=== PATIENT | female | born 1990 | race African-American/Black ===

== ENCOUNTER 2020-05-26 14:29 | Emergency (ER) | payer OTHER, SELFPAY ==
[2020-05-26 14:55] VITALS: BP 112/80; PULSE 110; RESP 18; TEMP 37.7; O2SAT 97; BMI 36.3
[2020-05-26] MEDS: Lidocaine HCl 1 % MPF 5 ML VIAL SUBCUT (16:03)
--- NOTE | 2020-05-26 16:13 | PC.NURSE ---
JUAN KATHLEEN AT BEDSIDE FOR I&D WITH PCT TRAVIS STOCKTON
--- NOTE | 2020-05-26 16:13 | ED.SKABFB ---
HPI - Skin/Abscess/Foreign Bdy General Chief complaint: Skin/Abscess/Foreign Body Stated complaint: cyst Time Seen by Provider: 05/26/20 15:53 Source: patient Mode of arrival: ambulatory Limitations: no limitations History of Present Illness HPI narrative: States pain/discomfort ongoing for about 4-5 days in the tailbone region, yesterday noted slight discharge from the area that is purulent and foul-smelling. Tetanus up to date: yes Severity scale (1-10): 8 Exacerbating factors: none Context: none Related Data Previous Rx's Medication Instructions Recorded cephalexin [Keflex] 500 mg PO Q8H 10 Days #30 cap 05/26/20 ibuprofen 800 mg PO Q8H PRN #30 tab 05/26/20 sulfamethoxazole-trimethoprim 1 tab PO BID 7 Days #14 tab 05/26/20 [Bactrim DS] Allergies Allergy/AdvReac Type Severity Reaction Status Date / Time No Known Allergies Allergy Verified 05/26/20 14:54 Review of Systems Review of Systems: Constitutional: No Weight loss, No Fever, No Chills, No Night Sweats, No Fatigue, No Malaise ENT/Mouth: No Hearing loss, No Ear Pain, No Nasal Congestion, No Sinus Pain, No Hoarseness, No sore throat, No Rhinorrhea, No Swallowing Difficulty Eyes: No Eye Pain, No Swelling, No Redness, No Foreign Body, No Discharge, No Vision Changes Cardiovascular: No Chest Pain, No SOB, No Dyspnea on Exertion, No Orthopnea, No Edema, No Palpitations Respiratory: No Cough, No Sputum, No Wheezing, No Dyspnea Gastrointestinal: No Nausea, No Vomiting, No Diarrhea, No Constipation, No abdominal Pain, No Hematochezia, No Melena Genitourinary: no irregular bleeding, No Dysuria, No Urinary Frequency, No Hematuria, No Urinary Incontinence, No Urgency, No Flank Pain, No Urinary Flow Changes Musculoskeletal: No joint pain, No Myalgias, No Joint Swelling Skin: As noted in HPI Neuro: No Weakness, No Numbness, No Paresthesias, No Loss of Consciousness, No Dizziness, No Headache Psych: No Social Issues Heme/Lymph: No Bruising, No Bleeding,No Lymphadenopathy Endocrine: No Polyuria, No Polydipsia, No Temperature Intolerance Yes all other systems are reviewed and are negative REPLACED BY [facility] Past Medical History Medical History (Updated 05/26/20 @ 16:15 by Farshad Gallegos NP) Anxiety Hypertension Sickle cell anemia Social History Social History Advance Directives: No Advance Directives Information Provided: No Physical Exam Vital Signs: Vital Signs: Last Vital Signs Temp 99.9 F 05/26/20 14:55 Pulse 110 H 05/26/20 14:55 Resp 18 05/26/20 14:55 BP 112/80 05/26/20 14:55 Pulse Ox 97 05/26/20 14:55 Body Mass Index 36.3 Reviewed Const: General: cooperative and healthy appearing; No acute distress or intoxicated appearing Nutritional Appearance: average body habitus Orientation/consciousness: patient oriented x3 HENMT: Head: Yes normal to inspection Ears: hearing grossly normal bilaterally Eyes: General: appearance normal, both eyes and all related structures Visual Guerrier: normal visual guerrier by confrontation Neck: Neck: Yes normal visual inspection and No tender Thyroid: Thyroid normal Chest: Chest palpation & inspection: normal inspection of the chest Resp: Effort & Inspection: normal respiratory effort Auscultation: clear to auscultation bilaterally Cardio: Jugular venous distension: no JVD Rhythm: regular rhythm Heart sounds: S1 normal heart sound present and S2 normal heart sound present GI: Inspection: Yes normal to inspection Percussion: Yes normal to percussion Auscultation: normal bowel sounds : General: Yes no CVA tenderness Back/Spine/Pelvis: Back: no CVA tenderness Skin: General skin exam: no rashes or lesions noted Full body images: 1. There is induration at the glue brianne extending slightly superior and inferior to this region as marked with central opening with slight purulent discharge. Tender palpation at the site. No overt erythema though limited by the skin tone. Neuro: General: patient oriented x3 Extrem: General: Yes normal to inspection Procedures Abscess I/D Site: other (Pilonidal cyst at the gluteal cleft region) Local Anesthetic: lidocaine 1% (10 mL) Amount of anesthesia used (mL): 10 Technique: incised with blade Amount of fluid expressed (mL): 20 Irrigation: Yes Packing used?: plain Complications: other (Tolerated procedure well with localizedo, in size, drained and packed.) Discharge Plan Discharge Clinical Impression: Cyst, pilonidal, with abscess Patient Disposition: Home, Self-Care Instructions: Pilonidal Cyst (ED), Abscess (ED) Additional Instructions: Keep site clean and dry Leave the Internal packing in place and you can change the top dressing at least twice a day for more frequently if become soiled Starting antibiotic as prescribed today Warm compresses Return in 2 days for packing removal Return sooner if any concerns or worsening symptoms Thank you Prescriptions: New ibuprofen 800 mg tablet 800 mg PO Q8H PRN (Reason: pain) Qty: 30 RF: 0 cephalexin [Keflex] 500 mg capsule 500 mg PO Q8H 10 Days Qty: 30 RF: 0 sulfamethoxazole-trimethoprim [Bactrim DS] 800-160 mg tablet 1 tab PO BID 7 Days Qty: 14 RF: 0 Referrals: Farshad Gallegos ALLERGY AND IMMUNOLOGY CHIEF [Emergency Midlevel Provider] - 2 days (Return on Wednesday evening or Wednesday morning for packing removal) Discharge Date/Time: 05/26/20 16:24
== END 2020-05-26 16:24 | disposition home or self-care (01) ==
PROVIDERS: Emergency Provider Emergency Medicine
DX: L05.01 Pilonidal cyst with abscess (principal); I10 Essential (primary) hypertension
CPT/HCPCS: 10080; 99283; 99284

== ENCOUNTER 2020-05-28 16:21 | Emergency (ER) | payer OTHER, SELFPAY ==
[2020-05-28 16:50] VITALS: BP 121/74; PULSE 89; RESP 16; TEMP 35.9; O2SAT 96; BMI 35.9
== END 2020-05-28 18:35 | disposition left against medical advice (07) ==
PROVIDERS: Emergency Provider Emergency Medicine
DX: M54.5 Low back pain (principal)
CPT/HCPCS: 99281; 99282

== ENCOUNTER 2020-05-30 13:43 | Emergency (ER) | payer OTHER, SELFPAY ==
[2020-05-30 13:53] VITALS: BP 119/68; PULSE 77; RESP 20; TEMP 36.4; O2SAT 98; BMI 35.5
--- NOTE | 2020-05-30 15:31 | ED.GENADULT ---
HPI - General Adult General Chief complaint: General Medical Stated complaint: ?cyst to be drained Time Seen by Provider: 05/30/20 15:31 Source: patient Mode of arrival: ambulatory Limitations: no limitations History of Present Illness HPI narrative: Patient had pilonidal cyst/abscess I&D here on the advised to return to 2 days to fragment removal she came back 2 days ago however the waiting room was busy so she left she comes back today for packing removal she is taking her antibiotic as prescribed she had actually has no complaints of pain discomfort, fever or chills. States she is back as instructed to get the packing removed. Onset (ago): day(s) Associated symptoms: denies other symptoms Treatments prior to arrival: none Related Data Previous Rx's Medication Instructions Recorded cephalexin [Keflex] 500 mg PO Q8H 10 Days #30 cap 05/26/20 ibuprofen 800 mg PO Q8H PRN #30 tab 05/26/20 sulfamethoxazole-trimethoprim 1 tab PO BID 7 Days #14 tab 05/26/20 [Bactrim DS] Allergies Allergy/AdvReac Type Severity Reaction Status Date / Time No Known Allergies Allergy Verified 05/26/20 14:54 Review of Systems Review of Systems: Constitutional: No Weight loss, No Fever, No Chills, No Night Sweats, No Fatigue, No Malaise ENT/Mouth: No Hearing loss, No Ear Pain, No Nasal Congestion, No Sinus Pain, No Hoarseness, No sore throat Eyes: No Eye Pain, No Swelling, No Redness, No Foreign Body, No Discharge, No Vision Changes Cardiovascular: No Chest Pain Respiratory: No Cough Gastrointestinal: No abdominal Pain Genitourinary: no irregular bleeding, No Dysuria, No Urinary Frequency, No Hematuria, No Urinary Incontinence, No Urgency Musculoskeletal: No joint pain, No Myalgias, No Joint Swelling Skin: No Skin Lesions, No rash Neuro: No Headache Psych: No Social Issues Heme/Lymph: No Bruising, No Bleeding,No Lymphadenopathy Endocrine: No Polyuria, No Polydipsia, No Temperature Intolerance Yes all other systems are reviewed and are negative FOR[facility], [facility] Past Medical History Medical History (Updated 05/30/20 @ 15:36 by Farshad Gallegos NP) Anxiety Hypertension Sickle cell anemia Social History Social History Advance Directives: No Advance Directives Information Provided: Yes Physical Exam Vital Signs: Vital Signs: Last Vital Signs Temp 97.5 F 05/30/20 13:53 Pulse 77 05/30/20 13:53 Resp 20 05/30/20 13:53 BP 119/68 05/30/20 13:53 Pulse Ox 98 05/30/20 13:53 Body Mass Index 35.5 Reviewed Const: General: cooperative and healthy appearing; No acute distress or intoxicated appearing Nutritional Appearance: average body habitus Orientation/consciousness: patient oriented x3 HENMT: Head: Yes normal to inspection Ears: hearing grossly normal bilaterally Chest: Chest palpation & inspection: normal inspection of the chest Resp: Effort & Inspection: normal respiratory effort Cardio: Jugular venous distension: no JVD : General: Yes no CVA tenderness Back/Spine/Pelvis: Back: no CVA tenderness Skin: Other: Pilonidal area with a dry sterile dressing covering were there is a previously incised abscess. Dressing removed revealing slight purulent discharge with packing in place. Packing removed with ease. Area of previously abscessed is no longer indurated. No tender palpation. General skin exam: no rashes or lesions noted Neuro: General: patient oriented x3 Extrem: General: Yes normal to inspection Discharge Plan Discharge Clinical Impression: Abscess packing removal Patient Disposition: Home, Self-Care Instructions: Abscess Follow-up (ED) Additional Instructions: Today your re-evaluate for the abscess The packing was removed Site appears to be healing well Continue take her antibiotics as previously prescribed Can wash with soap and water and cover as needed No need for repacking at this time follow-up as instructed Return if any concerns or worsening symptoms Thank you Prescriptions: No Action ibuprofen 800 mg tablet 800 mg PO Q8H PRN (Reason: pain) Qty: 30 RF: 0 cephalexin [Keflex] 500 mg capsule 500 mg PO Q8H 10 Days Qty: 30 RF: 0 sulfamethoxazole-trimethoprim [Bactrim DS] 800-160 mg tablet 1 tab PO BID 7 Days Qty: 14 RF: 0 Referrals: ED Physician,Generic [Emergency Provider] - 1 week (Primary care)
== END 2020-05-30 15:50 | disposition home or self-care (01) ==
PROVIDERS: Emergency Provider Emergency Medicine Emergency Medical Services
DX: Z48.00 Encounter for change or removal of nonsurgical wound dressing (principal); L05.01 Pilonidal cyst with abscess; I10 Essential (primary) hypertension
CPT/HCPCS: 99283